=== PATIENT | female | born 1970 | race Caucasian/White ===

== ENCOUNTER 2021-07-20 06:06 | Day surgery (SDC) | payer BC ==
[2021-07-09 14:17] VITALS: BMI 31.4
[2021-07-20] MEDS ORDERED: Lidocaine 1% MPF 2 ML VIAL ONE (07:26)
[2021-07-20] MEDS ORDERED: Oxymetazoline HCl 0.05% ( 15 ML ) ONE (08:42)
[2021-07-20] MEDS ORDERED: Midazolam HCl 2 mg/2 ml Vial ONE ×2 (08:45)
[2021-07-20] MEDS ORDERED: Fentanyl 100 MCG/2 ML VIAL ONE (08:45)
[2021-07-20] MEDS ORDERED: PROPOFOL 80 ML ONE (08:45)
[2021-07-20] MEDS ORDERED: Lidocaine 1% PF 5 ML VIAL ONE (08:46)
[2021-07-20] MEDS ORDERED: Glycopyrrolate 0.2 MG/ML 5 ML SYRINGE ONE (08:46)
[2021-07-20] MEDS ORDERED: Dexamethasone 20 MG/5 ML VIAL ONE (08:46)
[2021-07-20] MEDS ORDERED: Ondansetron PF 4 MG/2 ML Vial ONE (08:46)
[2021-07-20] MEDS ORDERED: EPINEPHrine 1 MG/ML AMP ONE ×2 (08:49)
[2021-07-20] MEDS ORDERED: Acetaminophen W/ Codeine 5 ML UDCUP ONE (10:43)
== END 2021-07-20 11:40 | disposition home or self-care (01) ==
LOC: CSHSDC 06:06
PROVIDERS: ATTEND Otolaryngology Plastic Surgery within the Head & Neck
PROC: 0CBT8ZX Excision of Right Vocal Cord, Via Natural or Artificial Opening Endoscopic, Diagnostic (ICD-10-PCS; principal; 2021-07-20)
PROC: 0CDT8ZZ Extraction of Right Vocal Cord, Via Natural or Artificial Opening Endoscopic (ICD-10-PCS; principal; 2021-07-20)
DX: J38.1 Polyp of vocal cord and larynx (principal); R49.0 Dysphonia; J38.4 Edema of larynx; F17.210 Nicotine dependence, cigarettes, uncomplicated; G47.30 Sleep apnea, unspecified; D64.9 Anemia, unspecified
CPT/HCPCS: 88305; J0171; J1100; J2250; J2405; J2704; J3010